=== PATIENT | male | born 2000 | race Caucasian/White ===

== ENCOUNTER 2023-06-04 15:14 | Emergency (ER) | payer BC, SELFPAY ==
--- NOTE | ~2023-06-04 | XR_ITS ---
EXAMINATION: XR forearm RT 2V DATE: 06/04/2023 15:41 INDICATION: Right forearm hardware. TECHNIQUE: 2 views of right forearm on 3 radiographs were obtained. COMPARISON: None. FINDINGS: Bone alignment is normal. No fracture. There is plate and screw fixation of radial diaphysi s. No lucency to suggest loosening. Joint spaces are normal. No elbow joint effusion. IMPRESSION: 1. Unremarkable plate and screw fixation of proximal radial diaphysis. Reviewed, dictated and finalized at location A.
[2023-06-04 15:26] VITALS: BP 124/81; PULSE 65; RESP 16; TEMP 37.4; O2SAT 100
--- NOTE | 2023-06-04 15:27 | ED.UPPEXIN ---
HPI - Extremity Injury (Upper) General Chief Complaint: Extremity Injury, Upper Stated Complaint: Right Arm Pain Source: patient Mode of arrival: ambulatory Limitations: no limitations History of Present Illness HPI narrative: 22-year-old male with hx broken right arm presented for complaint of right forearm pain after injury today. States he was at work, working on a vehicle trying to pry something from an [employer] when he developed stabbing pain to the forearm. States he lost chain saw mechanic strength and felt tingling to fingers temporarily. Tingling has subsided. Endorses chain saw mechanic strength is now normal, but reports pain to forearm with twisting movement at the wrist. Full ROM to elbow. Has not taken anything for pain. Pt is concerned that the plate from the fracture repair has shifted. Patient had surgery with [facility] in [place], who is now retired. Related Data Allergies Allergy/AdvReac Type Severity Reaction Status Date / Time No Known Allergies Allergy Verified 06/04/23 15:40 Review of Systems Review of Systems: CONSTITUTIONAL: Denies body aches, fever, chills EYES: Denies visual changes ENT: Denies rhinorrhea, congestion CARDIOVASCULAR: Denies chest pain, palpitations, or edema. RESPIRATORY: Denies cough or dyspnea. GASTROINTESTINAL: Denies abdominal pain, nausea, vomiting, or diarrhea. SKIN: Denies rash, itching, or wounds. MUSCULOSKELETAL: Per HPI Denies back pain, joint pain, or myalgia. NEUROLOGIC: Denies headache, numbness, tingling, or weakness. All systems reviewed & are unremarkable except as noted in HPI and below PMFSH Past Medical History Medical History (Updated 06/04/23 @ 16:29 by Rae Cat, JAY) Right arm fracture Comments At time of signature, I have reviewed and agree with nursing past medical, surgical, social and family history unless otherwise noted. Please see nursing chart for further information. There is no relevant family history pertinent to the presenting complaint Exam Narrative: GENERAL: Well-appearing, well-nourished, and in no acute distress. HEAD: Normocephalic, atraumatic. EYES: PERRLA, conjunctivae clear CHEST: Speaks in full sentences. No respiratory distress. HEART: Regular rate and rhythm. Normal and equal peripheral pulses. EXTREMITIES: Right mid forearm dorsal aspect tender to palpation. Right arm has normal strength and sensation, normal range of motion with flexion/extension at elbow; chronically decreased ROM with pronation/supination at baseline, endorses pain to forearm with movement. No swelling, erythema or ecchymosis, No open wounds, skin tenting, or obvious deformity; alignment normal, pulse palpable and equal bilaterally, skin warm, dry, pink. Capillary refill less than 3 seconds. SKIN: Warm, dry, no rash. NEURO: Alert and oriented x3. PSYCH: Normal mood and affect Extrem: Elbow/forearm/wrist images: 1. location of pain Course Course Emergency Course: Patient is aware of diagnosis, understands and agrees to treatment plan. Anticipatory guidance given. Patient agrees to follow-up as directed and is aware of reasons to seek care at the emergency department. Portions of this record may have been created with voice recognition software Level of Care: Express Care Visit Vital Signs Vital signs: Vital Signs Temperature 99.4 F 06/04/23 15:26 Pulse Rate 65 06/04/23 15:26 Respiratory Rate 16 06/04/23 15:26 Blood Pressure 124/81 06/04/23 15:26 Pulse Oximetry 100 06/04/23 15:26 Temperature 99.4 F 06/04/23 15:26 Pulse Rate 65 06/04/23 15:26 Respiratory Rate 16 06/04/23 15:26 Blood Pressure 124/81 06/04/23 15:26 Pulse Oximetry 100 06/04/23 15:26 Reviewed MDM - Extremity Injury (Upper) MDM Narrative Medical decision making narrative: Patient's injury and pain appear to be of musculoskeletal nature. No concerns for compartment syndrome. No concern for tendon or nerve injury. Patient is treatab
== END 2023-06-04 16:05 | disposition home or self-care (01) ==
PROVIDERS: Emergency Provider Nurse Practitioner Family
DX: M79.631 Pain in right forearm (principal)
CPT/HCPCS: 73090; 99213; G0463